=== PATIENT | male | born 1975 | race Caucasian/White ===

== ENCOUNTER 2018-08-12 09:51 | Outpatient (CLI) | payer OTHER ==
--- NOTE | 2018-08-12 10:28 | RAD ---
Exam: Cervical spine 3 views: HISTORY: Nondisplaced fracture of the seventh cervical vertebra COMPARISON: 07/23/2018 FINDINGS: 0.3 cm anterolisthesis of C6 on C7. Approximately 0.4 cm retrolisthesis of C5 on C6 with prominent di sc osteophytosis. Right lateral mass and facet fracture appears stable. IMPRESSION: Stable anterolisthesis of C6 on C7 and retrolisthesis of C5 on C6. Stable C7 fracture.
== END 2018-08-12 09:52 | disposition home or self-care (01) ==
LOC: TBSIIMAG 09:51
PROVIDERS: ATTEND Neurological Surgery
DX: S12.601A Unspecified nondisplaced fracture of seventh cervical vertebra, initial encounter for closed fracture (principal); M43.12 Spondylolisthesis, cervical region
CPT/HCPCS: 72040

== ENCOUNTER 2018-08-20 11:02 | Outpatient (CLI) | payer OTHER ==
--- NOTE | 2018-08-20 11:26 | RAD ---
RADIOGRAPH CHEST 2 VIEWS: DATE: 08/20/2018 HISTORY: 43-year-old male follow-up chest trauma. COMPARISON: 07/24/2018. FINDINGS: There is no airspace density, pulmonary edema, pleural effusion, pneumothorax, or cardiomegaly. Again noted is the blunting of the right lateral costophrenic angle consistent with scar, associated with elevation of right hemidiaphragm. The bilateral prominent alveolar densities in the mid lung zon es have become streaky, consistent with scar now. Tracheostomy tube has been removed. IMPRESSION: 1. No acute cardiopulmonary findings. 2. Scarring at right lateral pleural diaphragmatic interface. 3. Bilateral pulmonary scars.
== END 2018-08-20 11:03 | disposition home or self-care (01) ==
LOC: RAD 11:02
PROVIDERS: ATTEND Physician Assistant
DX: S22.41XD Multiple fractures of ribs, right side, subsequent encounter for fracture with routine healing (principal); J98.4 Other disorders of lung; J94.8 Other specified pleural conditions
CPT/HCPCS: 71046